=== PATIENT | male | born 1975 ===

== ENCOUNTER → 2023-12-16 | Outpatient (CLI) | payer OTHER ==
[2023-12-16 11:22] LABS: BASOPHIL # 0.1 10^3/uL (0.0-0.1); BASOPHIL % 0.7 % (0.0-0.2); EOSINOPHIL # 0.2 10^3/uL (0.0-0.2); EOSINOPHIL % 1.5 % (0.0-5.0); HEMATOCRIT(ML) 54.2 % (37.0-53.0); HEMOGLOBIN 17.9 g/dL (13.9-16.3); LYMPHOCYTES % 17.4 % (24.0-44.0); MEAN CORP HGB 29.2 pg (26-34); MEAN CORP VOLUME 88.3 fL (78-100); NEUTROPHILS % 72.7 % (41.0-85.0); PLATELET COUNT 300 10^3/uL (150-400); RED BLOOD CELL 6.14 10^6/uL (4.50-5.90); RED CELL DISTRIBUTION WIDTH 13.3 % (11.5-14.5); WHITE BLOOD CELL 13.8 10^3/uL (4.5-11.0)
[2023-12-16 11:23] LABS: +ADD MANUAL DIFF(NO CHRG) NO
[2023-12-16 11:43] LABS: ALBUMIN(ML) 3.7 g/dL (3.4-5.0); ALBUMIN/GLOBULIN RATIO 1.193; ANION GAP 14.4; BUN/CREATININE RATIO 10.1 (10.0-20.0); CALCIUM 9.5 mg/dL (8.4-10.5); CARBON DIOXIDE 26.3 mmol/L (20.0-32); CREATININE SERUM 0.99 mg/dL (0.59-1.40); POTASSIUM 4.7 mmol/L (3.6-5.2)
[2023-12-17 15:20] LABS: FOLLICLE STIMULATING HORMONE <0.3 mIU/mL (1.5-12.4)
== END | disposition home or self-care (01) ==
LOC: NPLAB 09:48
PROVIDERS: ATTEND Student in an Organized Health Care Education/Training Program
DX: I10 Essential (primary) hypertension (principal); E29.1 Testicular hypofunction
CPT/HCPCS: 36415; 80050; 82670; 83001; 84402; 84403; 84439

== ENCOUNTER → 2024-02-22 | Outpatient (CLI) | payer OTHER ==
[2024-02-22 10:20] LABS: BASOPHIL # 0.1 10^3/uL (0.0-0.1); BASOPHIL % 0.7 % (0.2-1.2); EOSINOPHIL # 0.3 10^3/uL (0.0-0.2); EOSINOPHIL % 2.1 % (0.0-5.0); HEMOGLOBIN 18.5 g/dL (13.9-16.3); LYMPHOCYTES # 3.24 10^3/uL1 (1.0-4.8); LYMPHOCYTES % 26.9 % (24.0-44.0); MEAN CORP VOLUME 87.9 fL (78-100); MONOCYTES % 8.4 % (5.0-12.0); NEUTROPHIL # 7.4 10^3/uL (1.8-7.7); NEUTROPHILS % 61.2 % (41.0-85.0); PLATELET COUNT 304 10^3/uL (150-400); RED BLOOD CELL 6.37 10^6/uL (4.50-5.90); RED CELL DISTRIBUTION WIDTH 15.9 % (11.5-14.5)
[2024-02-22 10:39] LABS: +ADD MANUAL DIFF(NO CHRG) NO
[2024-02-22 10:49] LABS: ALBUMIN(ML) 3.8 g/dL (3.4-5.0); ALBUMIN/GLOBULIN RATIO 1.055; ANION GAP 10.6; BUN/CREATININE RATIO 11.5 (10.0-20.0); CALCIUM 8.8 mg/dL (8.4-10.5); CARBON DIOXIDE 30.8 mmol/L (20.0-32); CREATININE SERUM 1.13 mg/dL (0.59-1.40); EST GFR, NON-AA 68.7 (>/=60); POTASSIUM 4.4 mmol/L (3.6-5.2)
[2024-02-25 12:27] LABS: FOLLICLE STIMULATING HORMONE <0.3 mIU/mL (1.5-12.4)
== END | disposition home or self-care (01) ==
LOC: LAB 09:54
PROVIDERS: ATTEND Student in an Organized Health Care Education/Training Program
DX: E07.9 Disorder of thyroid, unspecified (principal); I10 Essential (primary) hypertension; E29.1 Testicular hypofunction; R53.83 Other fatigue
CPT/HCPCS: 36415; 80050; 82670; 83001; 84402; 84403; 84439